=== PATIENT | female | born 1975 | race Caucasian/White ===

== ENCOUNTER 2021-05-14 14:27 | Emergency (ER) | payer OTHER ==
[~2021-05-14] VITALS: Ht 165.1 cm; Wt 158.8 kg
[2021-05-15] MEDS ORDERED: LISINOPRIL-HCT1 EAC1 PO (09:39)
[2021-05-15] MEDS ORDERED: GABAPENTIN300 MG PO (09:40)
[2021-05-15] MEDS ORDERED: BUPRENORPHIN-N1 EACH SL (09:40)
[2021-05-15] MEDS ORDERED: ATORVASTATIN CA10 MG PO (09:40)
[2021-05-15] MEDS ORDERED: FEROSUL325 MG PO (09:41)
[2021-05-15] MEDS ORDERED: METFORMIN HCL500 MG PO (09:41)
== END 2021-05-14 17:50 | disposition home or self-care (01) ==
LOC: ER1 14:27
DX: U07.1 COVID-19 (principal); E11.9 Type 2 diabetes mellitus without complications; I10 Essential (primary) hypertension; Z23 Encounter for immunization
CPT/HCPCS: 71045; 99284; M0243

== ENCOUNTER 2021-05-14 23:07 | Inpatient (IN) | payer OTHER ==
[~2021-05-14] VITALS: Ht 165.1 cm; Wt 158.8 kg
[2021-05-15 00:10] LABS: HEMOGLOBIN 11.3 gm/dl (12.3-15.3); RED BLOOD COUNT 4.16 M/UL (4.00-5.10); WHITE BLOOD COUNT 3.5 K/UL (4.5-11.0)
[2021-05-15 00:34] LABS: BUN/CREATININE RATIO 18 (0-10)
[2021-05-15] MEDS ORDERED: LISINOPRIL-HCT1 EAC1 PO (09:39)
[2021-05-15] MEDS ORDERED: BUPRENORPHIN-N1 EACH SL (09:40)
[2021-05-15] MEDS ORDERED: GABAPENTIN300 MG PO (09:40)
[2021-05-15] MEDS ORDERED: ATORVASTATIN CA10 MG PO (09:40)
[2021-05-15] MEDS ORDERED: METFORMIN HCL500 MG PO (09:41)
[2021-05-15] MEDS ORDERED: FEROSUL325 MG PO (09:41)
[2021-05-16 03:40] LABS: HEMOGLOBIN 11.3 gm/dl (12.3-15.3); RED BLOOD COUNT 4.21 M/UL (4.00-5.10); WHITE BLOOD COUNT 3.4 K/UL (4.5-11.0)
[2021-05-16 04:00] LABS: BUN/CREATININE RATIO 21 (0-10)
--- NOTE | 2021-05-16 16:55 | NUR ---
20G X 10CM MIDLINE PLACED IN THE RIGHT BASILIC VEIN USING ULTRASOUND GUIDANCE. ASPIRATES AND FLUSHES WELL. NO COMPLICATIONS. REPORT TO THONY VIRK.
[2021-05-17 15:30] LABS: HEMOGLOBIN 11.9 gm/dl (12.3-15.3); RED BLOOD COUNT 4.39 M/UL (4.00-5.10)
[2021-05-17 15:32] LABS: WHITE BLOOD COUNT 5.4 K/UL (4.5-11.0)
[2021-05-17 16:00] LABS: BUN/CREATININE RATIO 34 (0-10)
[2021-05-18 04:26] LABS: HEMOGLOBIN 12.1 gm/dl (12.3-15.3); RED BLOOD COUNT 4.55 M/UL (4.00-5.10); WHITE BLOOD COUNT 5.1 K/UL (4.5-11.0)
[2021-05-18 07:30] LABS: BUN/CREATININE RATIO 38 (0-10)
[2021-05-19 03:58] LABS: RED BLOOD COUNT 4.47 M/UL (4.00-5.10); WHITE BLOOD COUNT 6.3 K/UL (4.5-11.0)
[2021-05-19 04:17] LABS: BUN/CREATININE RATIO 36 (0-10)
--- NOTE | 2021-05-19 10:46 | NUR ---
PT TAKEN OFF O2 FOR EVALUATION, O2 SATS DROPPED TO 86%, PLACED BACK ON O2 AT 5L NC.
[2021-05-19] MEDS ORDERED: ELIQUIS2.5 MG PO (16:50)
[2021-05-19] MEDS ORDERED: IPRAT-ALBUT 0.5-3 ML NEB ×2 (16:50→17:14)
[2021-05-19] MEDS ORDERED: OMNICEF 300 MG300 MG PO (17:00)
[2021-05-19] MEDS ORDERED: AMLODIPINE BESYL5 MG PO (17:00)
[2021-05-19] MEDS ORDERED: DECADRON6 MG PO (17:24)
--- NOTE | 2021-05-19 22:10 | NUR ---
PATIENT IV SITE D/C WITH MIDLINE CATHETER INTACT. DISCHARGE INSTRUCTIONS GIVEN TO PATIENT AND PATIENT WAS WHEELED BY WHEELCHAIR TO THE VEHICLE. PATIENT WAS HOOKED UP TO HOME O2 CONCENTRATOR AT 6L. PATIENT STABLE AT TIME OF D/C.
== END 2021-05-19 22:10 | disposition home or self-care (01) | DRG 177 ==
LOC: ER1 23:07 → CDU 05-15 01:44 → PROG CARE 05-15 08:31
PROVIDERS: Family Medicine; Internal Medicine; ADMIT Internal Medicine
PROC: 8E0ZXY6 Isolation (ICD-10-PCS; principal; 2021-05-15)
PROC: XW033E5 Introduction of Remdesivir Anti-infective into Peripheral Vein, Percutaneous Approach, New Technology Group 5 (ICD-10-PCS; 2021-05-15)
PROC: 3E0333Z Introduction of Anti-inflammatory into Peripheral Vein, Percutaneous Approach (ICD-10-PCS; 2021-05-15)
PROC: 5A0945A Assistance with Respiratory Ventilation, 24-96 Consecutive Hours, High Flow/Velocity Cannula (ICD-10-PCS; 2021-05-15)
DX: U07.1 COVID-19 (principal); J12.82 Pneumonia due to coronavirus disease 2019; J96.01 Acute respiratory failure with hypoxia; J15.9 Unspecified bacterial pneumonia; F11.20 Opioid dependence, uncomplicated; Z68.43 Body mass index [BMI] 50.0-59.9, adult; E66.01 Morbid (severe) obesity due to excess calories; D50.9 Iron deficiency anemia, unspecified; R73.03 Prediabetes; I10 Essential (primary) hypertension; G62.9 Polyneuropathy, unspecified; E83.39 Other disorders of phosphorus metabolism; E78.5 Hyperlipidemia, unspecified; G89.29 Other chronic pain; Z99.81 Dependence on supplemental oxygen; Z83.3 Family history of diabetes mellitus; Z82.49 Family history of ischemic heart disease and other diseases of the circulatory system; Z87.59 Personal history of other complications of pregnancy, childbirth and the puerperium
CPT/HCPCS: 36415; 36600; 71045; 80053; 80307; 81001; 82550; 82553; 82607; 82728; 82803; 82962; 83036; 83605; 83615; 83735; 83880; 84100; 84439; 84443; 84484; 85025; 85027; 85379; 85384; 85610; 85652; 86140; 93005; 94640; 94664; 94760; 96374; 97162; 99285; C1751; J0360; J0696; J1100; J1650; J1940; J2405; J7030; U0002